=== PATIENT | male | born 1970 | race Caucasian/White ===

== ENCOUNTER 2025-05-06 14:49 | Outpatient (AMB) | payer OTHER, SELFPAY ==
--- NOTE | 2025-05-06 14:52 | A.OFFVIS_ITS ---
Intake Visit Reasons: Follow up Allergies No Known Allergies Allergy (Verified 05/06/25 14:56) Medication List - Last Reconciled 05/06/25 by Verna Heard CNP cetirizine (Zyrtec) 10 mg PO DAILY PRN methylphenidate HCl LA (Ritalin LA) 30 mg PO DAILY 30 days montelukast 10 mg PO DAILY HPI Comments Details: He was taking methylphenidate ER 30mg since 01/2025. He wanted to try extended release to see if it provided more consistency throughout the day, but medication was not helping as much. He felt better when he was taking methylphe nidate twice a day and was asking to go back to this. He has been having more tics, facial and vocal, since 12/2024 which got worse after being treated for poison sacha with prednisone a few weeks ago. The tics were happening more frequently and were becoming more bothersome. Mood was not so good. He was under a lot of stress related to insurance issues and healthcare needs of his son who also has TS. He was interested in working with psychiatrist or therapist and was planning to discuss referral with PCP. Sleep was okay. Trouble with focus and staying on task. More tics starting around 12/2024, mostly throat tic, that happened more often at night. Was more tired, which can be trigger for tics. Under a bit more stress lately. He reported having more tics in 09/2024, which were mostly vocal tics, with 3-4 days of bad tics that improved. 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 He tried Concerta in the past, but was not able to sleep at night. Has some vocal tics, repeats words or sounds, eye tics. Has been managing tics through diet, physical activity, sleep, mediation. Has Tourette syndrome, manages without medications. It was based upon multiple motor and vocal tics, eye blinking, facial and shoulder movements. Previously, vocal tics mostly have included nonverbal outbursts. When he was about 8 or 9 years old, he was given Haldol. He remembered that while on Haldol one day, he could not move his right shoulder as well as he used to and has decided not to restart. Considering an allergy, it was stopped. After that, he also remembers taking clonazepam, which did not help. Over the years, he has not tried any medicine though his condition has fluctuated. Sometimes he was better but sometime it affected him significantly. He also shared that his son was diagnosed with similar condition and OCD and was prescribed clonidine, which has helped him. He stated that he also tried clonidine through his primary care physician but that only made him tired and fatigued. Apparently, there was no history of any significant alcohol use or drug use. [facility] Medical History (Updated 05/06/25 @ 14:55 by Verna Heard CNP) OCD (obsessive compulsive disorder) ADHD Tourettes syndrome Review of Systems Const Denies chills, Denies daytime sleepiness, Denies difficulty sleeping, Denies fatigue, Denies fever(s), Denies frequent falls, Denies headache(s), Denies increased appetite, Denies poor appetite, Denies snoring, Denies weakness, Denies weight gain and Denies weight loss Eyes Denies loss of vision ENT Denies vertigo, Denies dizziness, Denies headache(s) and Denies neck pain Card Denies chest pain at rest, Denies chest pain with activity, Denies syncope, De nies leg edema, Denies palpitations, Denies dyspnea and Denies dyspnea on exertion Resp Denies cough, Denies dyspnea, Denies dyspnea on exertion and Denies snoring GI Denies abdominal pain, Denies constipation, Denies heartburn, Denies diarrhea and Denies nausea Denies urinary frequency, Denies urinary incontinence and Denies urinary urgency Musc Denies abnormal gait, Denies back pain, Denies myalgias, Denies arthralgias, Denies neck pain, Denies numbness and Denies tingling Neuro Denies abnormal gait, Denies vertigo, Denies dizziness, Denies syncope, Denies frequent falls, Denies headache(s), Denies lack of coordination, Denies loss of vision, Denies memory loss, Denies numbness, Denies Other visual disturbances, Denies restless legs, Denies seizure-like activity, Denies tingling, Denies paresthesias, Denies tremor(s), Denies weakness and Reports other (tics) Psych Denies anxiety, Denies depression, Denies auditory hallucinations, Denies memory loss and Denies visual hallucinations Endo Denies fatigue and Denies palpitations Physical Exam Const Other: General Appearance:? normal, in no acute distress. Heart:? S1, S2 normal, no murmurs. Lungs:? clear anteriorly and posteriorly. Musculoskeletal:? normal. Extremities:? no edema. Psych:? alert, oriented, cognitive function intact, cooperative with exam. Neuro Other: Mental Status:?Normal attention, orientation, memory and affect.? Cranial Nerves:?Pupils are equal, round and reactive to light. External occular muscles are intact. Visual patterson are full. Face is symmetrical. Facial sensations are normal. Tongue is midline. Palate elevates symmetrically. Shoulder shrugging is normal. Hearing to bedside conversation is normal. Motor Examination:?Normal muscle tone, bulk and strength,?Deep tendon reflexes are 2+,?Plantars are flexor.? Sensory Exam:?....? Coordination:?No ataxia,?no titubation.? Gait Exam: Within normal limits. Cerebellar Signs:?[id number] is okay. Extrapyramidal System:?No tremor, rigidity with normal facial expressions.? Pronator Drift:?Not present.? Involuntary Movements:?Eye and facial tics, occasional vocal tic. Speech:?Normal.? Assessment & Plan Assessment & Plan (1) ADHD: Code(s): F90.9 - Attention-deficit hyperactivity disorder, unspecified type Category: Medical Qualifiers: Attention deficit-hyperactivity disorder type: unspecified Qualified Code(s): F90.9 - Attention-deficit hyperactivity disorder, unspecified type Plan: Stop methylphenidate ER 30mg 1 capsule daily. Start methylphenidate 20mg 1 tablet in the morning and 1/2 tablet at bedtime, use/side effects reviewed. (2) Tourettes syndrome: Code(s): F95.2 - Tourette's disorder Category: Medical Plan: Discussed option for medications, declining at this time. Plan Meds tried: Concerta (unable to sleep), methylphenidate (worked) Medications: New methylphenidate HCl 20 mg orally 1 tablet in the morning and 1/2 tablet at bedtime; Partial Fill upon patient request. 45 tabs 0RF 30 days Coding Level of Care Code Est Pt Level 4 (92215) Diagnoses Attention deficit hyperactivity disorder (ADHD), unspecified ADHD type F90.9 Attention deficit-hyperactivity disorder type: unspecified Tourettes syndrome F95.2
--- OUTSIDE RECORDS SUMMARY | 2025-05-06 15:44 | XMS_ITS | Clinical Summary ---
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 09/16/2022 Active Active Problems No known active problems Social History Tobacco Use Types Packs/Day Years Used Date Smoking Tobacco: Never Assessed Sex and Gender Information Value Date Recorded Sex Assigned at Not on file Legal Sex Male 1:29 PM EST Gender Identity Not on file Sexual Orientation Not on file Plan of Treatment Health Maintenance Due Date Last Done Comments Cologuard 1970 Colon Cancer Screening 1970 Colonoscopy 1970 FOBT / Fit Test 1970 HIV Screening 1970 Hepatitis C Screening 1970 Sigmoidoscopy 1970 Hepatitis B Vaccines (1 of 3 - 19+ 3-dose series) 1989 DTaP,Tdap,and Td Vaccines (1 - Tdap) 1992 Pneumococcal Vaccine: 50+ Ye ars (1 of 1 - PCV) 2020 Zoster Vaccines (1 of 2) 2020 COVID-19 Vaccine ( - 2023-2 5 season) 2024 08/01/2022, 07/31/2021, 02/25/2021 Alcohol/Substance Use Screening 09/17/2024 Depression Screening and Follow-Up 09/17/2024 Social Drivers of Health Laura ual Screening 09/17/2024 Influenza Vaccine (#1) 2025 2, 08/31/2021, 07/21/2020, Additional history exists RSV Vaccine (60+ years old a nd patients) (1 - 1-dose 75+ series) 2045 Insurance on file Care Teams Associate Professor [employer] Forestry Relationship Specialty Start Date End Date oCnstantin Quezada [address] [place] [id number] PCP - General Family Medicine 10/11/22
== END 2025-05-06 15:13 | disposition home or self-care (01) ==
LOC: HO.HSM 14:49
PROVIDERS: PCP Family Medicine; Visit Provider Registered Nurse
DX: F90.9 Attention-deficit hyperactivity disorder, unspecified type (principal); F95.2 Tourette's disorder
CPT/HCPCS: 99214